=== PATIENT | female | born 1990 | race Caucasian/White ===

== ENCOUNTER 2020-05-19 23:00 | Emergency (ER) | payer SELFPAY ==
[~2020-05-19] VITALS: Ht 154.9 cm; Wt 54.4 kg
[2020-05-19 23:02] VITALS: Ht 154.9 cm; Wt 54.4 kg
[2020-05-20 00:15] VITALS: BP 115/87
== END 2020-05-20 00:10 | disposition home or self-care (01) ==
LOC: ED 23:00
DX: L50.9 Urticaria, unspecified (principal); Z20.828 Contact with and (suspected) exposure to other viral communicable diseases
CPT/HCPCS: Q0163; U0003